=== PATIENT | female | born 1955 | race Caucasian/White ===

== ENCOUNTER 2019-04-19 09:43 | Day surgery (SDC) | payer OTHER, SELFPAY ==
[2019-04-19] VITALS (7 sets, daily range): BP systolic 105–156; BP diastolic 50–87; PULSE 56–74; RESP 10–16; TEMP 36.2–36.4; O2SAT 96–99; BMI 31.1
--- NOTE | 2019-04-19 | PATH_ITS ---
[facility] Accession Number: [id number] . 01 Material submitted: . FIBROID - UTERINE FIBROID . 02 Diagnosis: Designated Uterine Fibroid, Biopsy: Endometrioid adenocarcinoma, FIGO grade 2. MRV 04/22/2019 1151 Local . 02 Comment: As part of routine supplier quality engineer, Dr. Krishnamurthy has reviewed this case and agrees with the above diagnosis. The finding of endometrioid adenocarcinoma was reported to Dr. Bright via her RN [place] by Dr. Nicole on 04/22/2019 at 10:30 a.m. . 02 Electronically signed: . Ashvin Nicole MD, PhD, Pathologist NPI- [id number] . 01 Gross description: . Received in formalin, labeled uterine fibroid, are multiple fragments of goodman-cleaning tissue (23 grams, 7.0 x 6.5 x 2.0 cm in aggregate). [place] Hand tissue submitted in cassettes A1 and A2. ([id number]) /MRV 04/20/2019 204 Local . 02 Pathologist provided ICD-10: C54.1 . 02 CPT . 377916 Performed at: 01 [facility] [address], [place], [place] [id number] MD Avery Murray MD Phone: [phone] Performed at: 02 [facility] [address] [place], [place] [id number] MD Trena Trevizo MD Phone: [phone]
[2019-04-19] MEDS: LACTATED RINGERS 1,000 ML 100 ML IV (10:19)
--- NOTE | 2019-04-19 10:38 | SUR.OPER ---
Lithotomy on padded OR bed, head on pillow, arms secured on padded arm boards at <90 degrees abduction. Legs secured in padded yellow fins stirrups.
--- NOTE | 2019-04-19 10:40 | PM.PREOP ---
Pre-operative Note Interval Note History & Physical reviewed/Exam performed by Physician: Yes Changes to H&P: No H&P completed within 30 days and has changed as indicated here:: see outpatient note
--- NOTE | 2019-04-19 12:09 | PM.OP.1 ---
Operative Date/Time/Diagnoses Date of procedure: 04/19/19 Time of procedure: 12:09 Pre-op diagnosis: Postmenopausal bleeding with large intracavitary mass Post-op diagnosis: same Procedure & Clinicians Procedure: Hysteroscopy with resection of mass and polyps Same procedure as scheduled: Yes Indications: Postmenopausal bleeding with ultrasound showing a 4 cm intracavitary mass Surgeon: Alyssia Bright Click Yes if Unassisted: Yes Anesthesia Type: General Operative Notes Findings: Large intracavitary mass likely fibroid with multiple polyps otherwise normal exam under anesthesia Closure Type: not applicable Specimen(s): other (Resected masses, polyps and curettage tissue from uterus) Estimated Blood Loss (mL): 20 Blood products transfused: none Procedure in detail: The patient was brought to the operating room where she underwent general anesthesia. She was placed in low stirrups She was prepped and draped in usual sterile fashion with pulsatile stockings in place and functional, warming in place, antibiotics in prior to beginning the case. Her bladder was drained with in and out catheter. A single-tooth tenaculum was placed on the anterior lip of the cervix and the uterus dilated to #8 Hegar dilator. The hysteroscope was placed into the uterus with a sorbitol solution running and under constant suction. The resecting loop set at 80 W of cutting was used to resect the fibroid down to the level of the endometrium as well as resecting polyps. A endometrial curettage was performed. The resected tissue and the endometrial curettage was sent to pathology. The patient went to recovery room in good condition counts of instruments and sponges were correct. Estimated blood loss less than 5 mL. The sorbitol solution I=O approximately 6000 mL. Complications: none Post-operative Condition: stable Disposition: same day surgery Plan for aftercare: Routine post hysteroscopy
[2019-04-19] MEDS: KETOROLAC 30 MG/ML VIAL IV (12:43)
[2019-04-19] MEDS: HYDROCODONE/ACET 5/325 TABLET 1 TAB PO (12:45)
== END 2019-04-19 13:15 | disposition home or self-care (01) ==
LOC: OR 09:47
PROVIDERS: PCP Family Medicine; Visit Provider Specialist
PROC: 0UDB8ZZ Extraction of Endometrium, Via Natural or Artificial Opening Endoscopic (ICD-10-PCS; CPT 58558; principal; 2019-04-19 11:00)
DX: C54.1 Malignant neoplasm of endometrium (principal)
CPT/HCPCS: 58561; J1100; J1885; J2250; J2405; J2704; J3010